=== PATIENT | female | born 1950 | race African-American/Black ===

== ENCOUNTER 2018-01-22 18:44 | Emergency (ER) | payer MEDICARE ==
[2018-01-22] MEDS ORDERED: CLINDAMYCIN 900 MG/D5W RTU 900 MG/50 ML RTUPB IV ONE (19:17)
[2018-01-22] MEDS ORDERED: DILTIAZEM HCL 60 MG TABLET PO ONE (19:18)
[2018-01-22] MEDS ORDERED: AMLODIPINE BESYLATE 10 MG TABLET PO ONE (19:18)
--- NOTE | 2018-01-22 19:28 | ER Document Report ---
ED General - General Chief Complaint: Leg Swelling Stated Complaint: LEG PAIN Time Seen by Provider: 01/22/18 19:17 Mode of Arrival: Ambulatory Information source: Patient, Relative Notes: 67-year-old female with hypertension, hyperlipidemia presents via private vehicle with right lower extremity pain that started 4 days prior to arrival. Patient denies any injury to the leg. She states that over the last couple days the pain has worsened and she noticed that her leg was red. Patient does report that she had multiple mosquito bites on her leg that she was scratching at. Patient does have a previous history of cellulitis. She denies history of diabetes. She denies fever, chills, nausea, vomiting, chest pain, abdominal pain, back pain, shortness of breath, cough. She denies history of PE, DVT, recent surgery, estrogen use, recent travel. Patient did just move into [place] and has not had her blood pressure medication for several weeks. TRAVEL OUTSIDE OF THE [place] IN LAST 30 DAYS: No - HPI Onset: Last week Onset/Duration: Gradual, Persistent Quality of pain: Achy, Burning Severity: Moderate Associated symptoms: denies: Chest pain, Fever, Hurts to breath, Nausea, Vomiting, Shortness of breath, Weakness Exacerbated by: Other - Palpation Relieved by: Remaining still Similar symptoms previously: No Recently seen / treated by doctor: No - Related Data Allergies/Adverse Reactions: amoxicillin Allergy (Verified 01/22/18 18:46) banana Allergy (Verified 01/22/18 18:46) cephalexin [From Keflex] Allergy (Verified 01/22/18 18:46) ciprofloxacin [From Cipro] Allergy (Verified 01/22/18 18:46) latex Allergy (Verified 01/22/18 18:46) Penicillins Allergy (Verified 01/22/18 18:46) sulfamethoxazole [From Bactrim] Allergy (Verified 01/22/18 18:46) trimethoprim [From Bactrim] Allergy (Verified 01/22/18 18:46) Past Medical History - General Information source: Patient, [facility] - Social History Smoking Status: Never Smoker Frequency of alcohol use: None Drug Abuse: None Lives with: Family Family History: Reviewed & Not Pertinent Patient has suicidal ideation: No Patient has homicidal ideation: No - Past Medical History Cardiac Medical History: Reports: Hx Hypercholesterolemia, Hx Hypertension Renal/ Medical History: Denies: Hx Peritoneal Dialysis Past Surgical History: Reports: Hx Hysterectomy, Hx Orthopedic Surgery - L knee replacement 2014 Review of Systems - Review of Systems Notes: REVIEW OF SYSTEMS: CONSTITUTIONAL : Denies fever, chills, or sweats. Denies recent illness. Denies weight loss, recent hospitalizations. EENT: Denies visual changes, eye pain. Denies sore throat, oral lesions, difficulty swallowing. CARDIOVASCULAR: Denies chest pain. Denies palpitations. Denies lower extremity edema. RESPIRATORY: Denies cough. Denies shortness of breath, wheezing. GASTROINTESTINAL: Denies abdominal pain or distention. Denies nausea, vomiting , or diarrhea. Denies blood in vomitus, stools, or per rectum. Denies black, tarry stools. Denies constipation. GENITOURINARY: Denies difficulty urinating, painful urination, frequency, blood in urine, or vaginal discharge. MUSCULOSKELETAL: Denies back or neck pain or stiffness. Denies joint pain or swelling. SKIN: + Erythema right anterior guzman HEMATOLOGIC : Denies easy bruising or bleeding. LYMPHATIC: Denies swollen glands. NEUROLOGICAL: Denies confusion or altered mental status. Denies loss of consciousness. Denies dizziness or lightheadedness. Denies headache. Denies weakness or paralysis. Denies problems difficulty with ambulation, slurred speech. Denies sensory loss, numbness, or tingling. Denies seizures. PSYCHIATRIC: Denies anxiety or stress. Denies depression, suicidal ideation, or homicidal ideation. Denies visual or auditory hallucinations. Physical Exam - Vital signs Vitals: Temp Pulse Resp BP Pulse Ox 99.4 F 100 20 235/118 H 100 01/22/18 18:54 01/22/18 18:54 01/22/18 18:54 01/22/18 18:54 01/22/18 18:54 - Notes Notes: PHYSICAL EXAMINATION: GENERAL: Well-appearing, well-nourished and in no acute distress. HEAD: Atraumatic, normocephalic. EYES: Pupils equal round and reactive to light, extraocular movements intact, conjunctiva are normal. ENT: Nares patent, oropharynx clear without exudates. Moist mucous membranes. NECK: Normal range of motion, supple without lymphadenopathy LUNGS: Breath sounds clear to auscultation bilaterally and equal. No wheezes rales or rhonchi. HEART: Regular rate and rhythm without murmurs ABDOMEN: Soft, nontender, nondistended abdomen. No guarding, no rebound. No masses appreciated. Female : deferred Musculoskeletal: Normal range of motion, no pitting or edema. No cyanosis. No calf tenderness, no calf swelling. NEUROLOGICAL: Cranial nerves grossly intact. Normal speech, normal gait. Normal sensory, motor exams PSYCH: Normal mood, normal affect. SKIN: Erythema to the anterior aspect of the right lower extremity. Course - Re-evaluation Re-evalutation: 01/22/18 19:27 Patient presents with symptoms most consistent with an acute cellulitis. Vitals within normal limits except for a markedly elevated blood pressure secondary to medication noncompliance. Patient did receive her home medication of Norvasc and Cardizem during her ED course. Patient does not meet sepsis criteria is overall very well in appearance. Exam and history are not consistent with DVT. Patient will be started on coverage for both staph and strep. Area of erythema was outlined. Daughters are at the bedside and are in agreement to try a course of outpatient antibiotics. She does have an upcoming appointment with a new primary care physician tomorrow. At this time will discharge with return precautions and follow-up recommendations. Verbal discharge instructions given a the bedside and opportunity for questions given. Medication warnings reviewed. Patient is in agreement with this plan and has verbalized understanding of return precautions and the need for primary care follow-up in the next 24-72 hours. - Vital Signs Vital signs: Temp Pulse Resp BP Pulse Ox 98.5 F 88 16 153/84 H 100 01/22/18 20:29 01/22/18 20:29 01/22/18 20:29 01/22/18 20:29 01/22/18 20:29 Discharge - Discharge Clinical Impression: Cellulitis of right lower extremity without foot, Noncompliance with medication regimen Hypertension Qualifiers: Hypertension type: unspecified Qualified Code(s): I10 - Essential (primary) hypertension Condition: Good Disposition: HOME, SELF-CARE Instructions: Cellulitis ([facility]) Additional Instructions: The rash is likely due to infection of your skin. You need to take the antibiotics as prescribed. Do not stop even if the rash goes away until you have completed all the antibiotics. The area of redness was traced out here in the emergency department with a marking pen. You need to return to emergency department if the redness spreads outside of this area by more than 2 cm in any direction. You should also return if you develop fevers with temperature greater than 101, persistent vomiting, worsening pain, or have any other symptoms that are concerning to you. Follow up with your [id number] hours for further care or return to the ED IMMEDIATELY if symptoms worsen or you have any concerns. If you cannot afford to follow up with your primary care physician a list of low cost clinics have been provided at the end of your discharge papers as well. Most prescribed medications have multiple side effects. The safest thing to do is when filling your prescription speak to your pharmacist regarding possible interactions with your normal home medications and over the counter medications such as Ibuprofen, Tylenol, Benadryl. If you experience any symptoms that cause you discomfort or concern you should discontinue the medication immediately and return to the emergency room or call your primary care physician. Prescriptions: Clindamycin HCl 450 mg PO TID 7 Days #63 capsule Ondansetron [Zofran Odt 4 mg Tablet] 1 tab PO Q4H PRN #15 tab.rapdis PRN Reason: For Nausea/Vomiting Forms: Elevated Blood Pressure
[2018-01-22] MEDS ORDERED: ONDANSETRON 4 MG TAB.RAPDIS PO ONE (19:30)
[2018-01-22 20:30] VITALS: BP 153/84
== END 2018-01-22 20:38 | disposition home or self-care (01) ==
LOC: ER 18:44
DX: L03.115 Cellulitis of right lower limb (principal); T46.1X6A Underdosing of calcium-channel blockers, initial encounter; Z91.128 Patient's intentional underdosing of medication regimen for other reason; Z91.14 Patient's other noncompliance with medication regimen; I10 Essential (primary) hypertension; Z88.0 Allergy status to penicillin; Z91.018 Allergy to other foods; Z88.1 Allergy status to other antibiotic agents; Z91.040 Latex allergy status
CPT/HCPCS: 87040; A9270 ×3; S0119